=== PATIENT | male | born 1985 | race Caucasian/White ===

== ENCOUNTER → 2022-02-01 12:31 | Outpatient (BNVA) | payer OTHER, SELFPAY | PROVIDERS: PCP Nurse Practitioner Adult Health; Visit Provider Nurse Practitioner Family | DX: R06.83 Snoring (principal); R40.0 Somnolence; G25.81 Restless legs syndrome; G47.52 REM sleep behavior disorder | CPT/HCPCS: 99202 ==

== ENCOUNTER → 2022-04-29 22:32 | Outpatient (REF) | payer OTHER, SELFPAY | LOC: HO.SL 22:32 | PROVIDERS: PCP Nurse Practitioner Adult Health; Visit Provider Nurse Practitioner Family | DX: R06.83 Snoring (principal); R40.0 Somnolence; G25.81 Restless legs syndrome; G47.52 REM sleep behavior disorder | CPT/HCPCS: 95810 ==

== ENCOUNTER → 2022-07-05 13:58 | Outpatient (BNVA) | payer OTHER, SELFPAY | PROVIDERS: PCP Nurse Practitioner Adult Health; Visit Provider Nurse Practitioner Family | DX: G47.33 Obstructive sleep apnea (adult) (pediatric) (principal); R06.83 Snoring; Z99.89 Dependence on other enabling machines and devices | CPT/HCPCS: 99212 ==

== ENCOUNTER 2023-07-07 15:00 | Outpatient (AMB) | payer OTHER, SELFPAY ==
--- NOTE | 2023-07-07 15:33 | MHC.OFFVIS ---
Intake Vital Signs 07/07/23 15:50 Height 5 ft 11 in Weight 227 lb 4 oz BMI 31.7 BP 134/70 Blood Pressure Location Lt brachial Position Sitting Pulse 63 Pulse Source Pulse Oximeter Pulse Oximetry (%) 98 Oxygen Delivery Method Room Air Intake Visit Reasons: 1yr f/u observed apnea - CONF w/address Intake Note: Patient presents for a 1 year f/u. While using CPAP machine pt. finds himself gasping for air. Would like to try full face mask. Pt. falls asleep during day often. Allergies No Known Allergies Allergy (Verified 07/07/23 15:44) HPI HPI Comments History of Present Illness Details 37 y/o male patient presents for follow up of BREANNE on CPAP. The CPAP compliance and therapy response (04/01/23-06/29/23) reviewed with the patient. He is on APAP [id number]. Usage days 69 days and average usage hours 4 hours 30 min. The max pressure is 8.7 and AHI was 2.1. The PSG sleep study result was significant for loud snoring and mild degree of sleep apnea with increased severity in REM sleep. The AHI was 5/hr, REM AHI was 17/hr and oxygen catal[place] was 85%. Pt reports he uses nasal mask, but he wants to try full face mask, he feels too much pressure to his nose. 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 He plans to switch his work schedule. [facility] Surgical History History of appendectomy Hx of tonsillectomy Family History Maternal Grandmother Breast cancer Maternal Aunt Breast cancer Father Diabetes HTN (hypertension) Sister Diabetes Social History Alcohol intake: former Patient Tobacco Use Status: Current everyday Tobacco user Cigarettes Per Day: 10 Years Smoked: 21 Review of Systems Const All systems reviewed & are unremarkable except as noted in HPI and below ENT Reports Normal hearing present Neuro Reports Normal hearing present Physical Exam Vital Signs: Last Vital Signs Pulse 63 07/07/23 15:50 BP 134/70 07/07/23 15:50 Pulse Ox 98 07/07/23 15:50 Oxygen Delivery Method Room Air 07/07/23 15:50 BMI result Body Mass Index 31.7 Const General: cooperative Nutritional Appearance: obese Orientation/consciousness: patient oriented x3 HEENT Throat: Yes other (mallampati score 4) Neck Neck: Yes full ROM and Yes supple Resp Effort & Inspection: normal respiratory effort and able to speak in complete sentences Neuro General: patient oriented x3, gait normal and moves all extremities Cranial nerves: Yes Bilaterally intact EOM present, Yes Normal facial strength present, Yes Midline tongue present, Yes Symmetric palate elevation present, Yes Normal hearing present, Yes Ability to bilaterally rotate head present and Yes Ability to bilaterally elevate shoulders present Cognition (Neuro): normal cognition Gait exam (Neuro): Normal gait present Psych Appearance: grossly normal Mental Status: mental status grossly normal Speech and movement: Normal speech and movement present Affect: normal affect Attitude: cooperative Assessment & Plan Assessment & Plan (1) BREANNE on CPAP: Code(s): G47.33 - Obstructive sleep apnea (adult) (pediatric); Z99.89 - Dependence on other enabling machines and devices (2) Loud snoring: Code(s): R06.83 - Snoring Plan Continue to use APAP [id number]. Stressed compliance, uses every night and more than 4 hours. Clean mask and tubing regularly. New mask fitting prescription and [facility] information given to patient. Wt reduction advised. Coding Level of Care Code Est Pt Level 3 (55630) Diagnoses BREANNE on CPAP G47.33; Z99.89 Loud snoring R06.83
[2023-07-07 15:50] VITALS: BP 134/70; PULSE 63; O2SAT 98; BMI 31.7
== END 2023-07-07 16:05 | disposition home or self-care (01) ==
LOC: HO.HSMS 15:00
PROVIDERS: PCP Nurse Practitioner Adult Health; Visit Provider Nurse Practitioner Family
DX: G47.33 Obstructive sleep apnea (adult) (pediatric) (principal); Z99.89 Dependence on other enabling machines and devices; R06.83 Snoring
CPT/HCPCS: 99213

== ENCOUNTER → 2023-07-07 15:00 | Outpatient (BNVA) | payer OTHER, SELFPAY | PROVIDERS: PCP Nurse Practitioner Adult Health; Visit Provider Nurse Practitioner Family | DX: G47.33 Obstructive sleep apnea (adult) (pediatric) (principal); R06.83 Snoring; Z99.89 Dependence on other enabling machines and devices | CPT/HCPCS: 99212 ==

== ENCOUNTER 2024-06-11 14:59 | Outpatient (AMB) | payer OTHER, SELFPAY ==
[2024-06-11 15:04] VITALS: BP 130/80; PULSE 52; O2SAT 97; BMI 34.3
--- NOTE | 2024-06-11 15:04 | A.OFFVIS_ITS ---
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 Required: No Accompanied by: Self / Same As Patient Allergies No Known Allergies Allergy (Verified 06/11/24 15:07) Medication List - Last Reconciled 06/12/24 by LUDA Tariq acamprosate 666 mg PO TID buprenorphine ER (Sublocade) mg subcut buprenorphine-naloxone 4-1 mg (Suboxone) 5 mg sublingual DAILY clonidine HCl 0.1 mg PO BID cyclobenzaprine 10 mg PO BEDTIME gabapentin mg PO gabapentin 300 mg PO TID gabapentin 400 mg PO TID hydroxyzine HCl mg PO ibuprofen 800 mg PO DAILY lamotrigine 100 mg PO DAILY lamotrigine 50 mg PO DAILY methocarbamol 750 mg PO Q6H PRN naloxone 4 mg/actuation sprays intranasal naproxen 500 mg PO BID nicotine (polacrilex) mg PO ondansetron 4 mg PO Q8H PRN prazosin 1 mg PO BEDTIME quetiapine mg PO sertraline 50 mg PO DAILY trazodone 100 mg PO BEDTIME PRN HPI Comments Details: 38 y/o male patient presents for follow up of BREANNE on CPAP, who would also like to discuss involuntary sleepy behaviors and hypersomnia. Patient states he is generally sleeping well with the CPAP, he feels that it is helpful. He has stopped using the water in his water reservoir, as even with small amounts of water in the water chamber, he experiences significant water accumulation in his mask. He reported this to his respiratory company, and had received a 2nd [employer]an CPAP machine, but this has continued to happen. 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 He also reports a nocturnal whole body twitch which can come and go through out the night, as well as waking up with 1 arm raised and sore in fixed extension, and fighting in his sleep. 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 He he states he has a h/o one provoked seizure while withdrawing from percocet/fentanyl. Otherwise, he denies any other history of known seizure activity. When asked if he is prone to spacing out, patient states he is prone to falling asleep when inactive. For instance, pt reports if he is not busy, and is just sitting for 20 minutes, he may fall asleep. Or if he is very busy, and if he sits down, he will fall asleep. Review of previous in-lab sleep study, shows mild BREANNE and minimal periodic limb movement of sleep. He takes 1 cup of coffee per day. Otherwise he does not take any other caffeinated beverages. He does not take any alcohol, marijuana, or illicit substances. [facility] Surgical History History of appendectomy Hx of tonsillectomy Family History Maternal Grandmother Breast cancer Maternal Aunt Breast cancer Father Diabetes HTN (hypertension) Sister Diabetes Social History Alcohol intake: former Patient Tobacco Use Status: Current everyday Tobacco user Cigarettes Per Day: 10 Years Smoked: 21 Physical Exam Vital Signs: Last Vital Signs Pulse 52 06/11/24 15:04 BP 130/80 06/11/24 15:04 Pulse Ox 97 06/11/24 15:04 Oxygen Delivery Method Room Air 06/11/24 15:04 BMI result Body Mass Index 34.3 Const General: cooperative and no acute distress Orientation/consciousness: patient oriented x3 Resp Effort & Inspection: normal respiratory effort and able to speak in complete sentences Neuro General: patient oriented x3 and deep tendon reflexes 2+ bilaterally Cranial nerves: Yes CN's II-XII intact bilaterally Cognition (Neuro): normal cognition Gait exam (Neuro): Normal gait present Motor exam (neuro): 5/5 motor strength present throughout Psych Appearance: grossly normal Mental Status: mental status grossly normal Speech and movement: Normal speech and movement present Affect: normal affect Attitude: cooperative Assessment & Plan Assessment & Plan (1) BREANNE on CPAP: Code(s): G47.33 - Obstructive sleep apnea (adult) (pediatric); Z99.89 - Dependence on other enabling machines and devices Category: Medical (2) Parasomnia: Code(s): G47.50 - Parasomnia, unspecified Category: Medical (3) Hypersomnia, unspecified: Code(s): G47.10 - Hypersomnia, unspecified Category: Medical (4) History of seizure: Code(s): Z87.898 - Personal history of other specified conditions Category: Medical Plan For BREANNE: Continue APAP 5-20 cmH2O w/ EPR 2 nightly > 4 hours, as pt continues to have good clinical effect from use. Clean CPAP machine and supplies routinely. Change CPAP supplies routinely. Use distilled water in CPAP water reservoir. Pt to contact us or respiratory company with any questions or concerns. For involuntary nocturnal movements and hypersomnia, in setting previous seizure activity: Encouraged patient to try to maintain a regular bedtime and wake-up time. Some of his hypersomnia, may be in part due to current medication regimen, however in consideration of all of his sleep symptoms, further workup is indicated. Check labs for common etiologies Check baseline EEG Check brain MRI with and without contrast Will follow-up upon review of above and patient to follow-up in clinic in 6 months or sooner prn. Orders: Orders EEG electroencephalogram 06/11/24 E05.90 - Thyrotoxicosis, unspecified without thyrotoxic crisis or storm, F32.A - Depression, unspecified, F41.9 - Anxiety disorder, unspecified, G47.10 - Hypersomnia, unspecified, R25.9 - Unspecified abnormal involuntary movements, Z87.898 - Personal history of other specified conditions Rheumatoid Factor 06/11/24 E05.90 - Thyrotoxicosis, unspecified without thyrotoxic crisis or storm, F32.A - Depression, unspecified, F41.9 - Anxiety disorder, unspecified, G47.10 - Hypersomnia, unspecified, R25.9 - Unspecified abnormal involuntary movements, Z87.898 - Personal history of other specified conditions Vitamin B12 and Folate 06/11/24 E05.90 - Thyrotoxicosis, unspecified without thyrotoxic crisis or storm, F32.A - Depression, unspecified, F41.9 - Anxiety disorder, unspecified, G47.10 - Hypersomnia, unspecified, R25.9 - Unspecified abnormal involuntary movements, Z87.898 - Personal history of other specified conditions TSH reflex Free T4 06/11/24 E05.90 - Thyrotoxicosis, unspecified without thyrotoxic crisis or storm, F32.A - Depression, unspecified, F41.9 - Anxiety disorder, unspecified, G47.10 - Hypersomnia, unspecified, R25.9 - Unspecified abnormal involuntary movements, Z87.898 - Personal history of other specified conditions Complete Blood Count Auto Diff 06/11/24 E0. - Thyrotoxicosis, unspecified without thyrotoxic crisis or storm, F32.A - Depression, unspecified, F41.9 - Anxiety disorder, unspecified, G47.10 - Hypersomnia, unspecified, R25.9 - Unspecified abnormal involuntary movements, Z87.898 - Personal history of other specified conditions Comprehensive Met. Panel 06/11/24 E05.90 - Thyrotoxicosis, unspecified without thyrotoxic crisis or storm, F32.A - Depression, unspecified, F41.9 - Anxiety disorder, unspecified, G47.10 - Hypersomnia, unspecified, R25.9 - Unspecified abnormal involuntary movements, Z87.898 - Personal history of other specified conditions Vitamin B6 06/11/24 E05.90 - Thyrotoxicosis, unspecified without thyrotoxic crisis or storm, F32.A - Depression, unspecified, F41.9 - Anxiety disorder, unspecified, G47.10 - Hypersomnia, unspecified, R25.9 - Unspecified abnormal involuntary movements, Z87.898 - Personal history of other specified conditions MR head/brain wo/w con 06/11/24 E0.90 - Thyrotoxicosis, unspecified without thyrotoxic crisis or storm, F32.A - Depression, unspecified, F41.9 - Anxiety disorder, unspecified, G47.10 - Hypersomnia, unspecified, R25.9 - Unspecified abnormal involuntary movements, Z87.898 - Personal history of other specified conditions FAMILIA Reflex Titer and Pattern 06/11/24 E0. - Thyrotoxicosis, unspecified without thyrotoxic crisis or storm, F32.A - Depression, unspecified, F41.9 - Anxiety disorder, unspecified, G47.10 - Hypersomnia, unspecified, R25.9 - Unspecified abnormal involuntary movements, Z87.898 - Personal history of other specified conditions Vitamin D 25-OH (D2 and D3) 06/11/24 E05.90 - Thyrotoxicosis, unspecified without thyrotoxic crisis or storm, F32.A - Depression, unspecified, F41.9 - Anxiety disorder, unspecified, G47.10 - Hypersomnia, unspecified, R25.9 - Unspecified abnormal involuntary movements, Z87.898 - Personal history of other specified conditions HIV Ab/Ag 06/11/24 E0.90 - Thyrotoxicosis, unspecified without thyrotoxic crisis or storm, F32.A - Depression, unspecified, F41.9 - Anxiety disorder, unspecified, G47.10 - Hypersomnia, unspecified, R25.9 - Unspecified abnormal involuntary movements, Z87.898 - Personal history of other specified conditions Lyme IgG/IgM w/reflex to WB 06/11/24 E05.90 - Thyrotoxicosis, unspecified without thyrotoxic crisis or storm, F32.A - Depression, unspecified, F41.9 - Anxiety disorder, unspecified, G47.10 - Hypersomnia, unspecified, R25.9 - Unspecified abnormal involuntary movements, Z87.898 - Personal history of other specified conditions CRP High Sensitivity 06/11/24 E05.90 - Thyrotoxicosis, unspecified without thyrotoxic crisis or storm, F32.A - Depression, unspecified, F41.9 - Anxiety disorder, unspecified, G47.10 - Hypersomnia, unspecified, R25.9 - Unspecified abnormal involuntary movements, Z87.898 - Personal history of other specified conditions Erythrocyte Sedimentation Rate 06/11/24 E05.90 - Thyrotoxicosis, unspecified without thyrotoxic crisis or storm, F32.A - Depression, unspecified, F41.9 - Anxiety disorder, unspecified, G47.10 - Hypersomnia, unspecified, R25.9 - Unspecified abnormal involuntary movements, Z87.898 - Personal history of other specified conditions Ferritin 06/11/24 E05.90 - Thyrotoxicosis, unspecified without thyrotoxic crisis or storm, F32.A - Depression, unspecified, F41.9 - Anxiety disorder, unspecified, G47.10 - Hypersomnia, unspecified, R25.9 - Unspecified abnormal involuntary movements, Z87.898 - Personal history of other specified conditions Vitamin B1 06/11/24 E05.90 - Thyrotoxicosis, unspecified without thyrotoxic crisis or storm, F32.A - Depression, unspecified, F41.9 - Anxiety disorder, unspecified, G47.10 - Hypersomnia, unspecified, R25.9 - Unspecified abnormal involuntary movements, Z87.898 - Personal history of other specified conditions Magnesium 06/11/24 E05.90 - Thyrotoxicosis, unspecified without thyrotoxic angelica is or storm, F32.A - Depression, unspecified, F41.9 - Anxiety disorder, unspecified, G47.10 - Hypersomnia, unspecified, R25.9 - Unspecified abnormal involuntary movements, Z87.898 - Personal history of other specified conditions Coding Level of Care Code Est Pt Level 4 (75099) Diagnoses BREANNE on CPAP G47.33; Z99.89 Parasomnia G47.50 Hypersomnia, unspecified G47.10 History of seizure Z87.898
--- OUTSIDE RECORDS SUMMARY | 2024-06-11 15:09 | XMS_ITS | Clinical Summary ---
Author Organization [facility] ity Address [address] [place] [address] Care Team Providers Care Family Services Assistant Name Role Phone Roberto Becker MD Primary Care Provider [phone] Surgical History Surgery Date Site/Laterality Comments APPENDECTOMY PROCEDURE: HISTORICAL APPENDECTOMY TONSILLECTOMY PROCEDURE: HISTORICAL TONSILLECTOMY WISDOM TOOTH EXTRACTION PROCEDURE: HISTORICAL WISDOM TEETH EXTRACTION Family History Medical History Relation Name Comments Breast cancer Aunt maternal aunt, diagnosed in her 40's Diabetes Father Hypertension Father Other cancer Maternal Grandfather Breast cancer Maternal Grandmother in her 70's No Known Problems Mother Cataracts Paternal Grandfather No Known Problems Paternal Grandmother No Known Problems Sister 1 Diabetes Sister 2 Liver disease Sister 2 congenital juliana er issues, younger sister Relation Name Status Comments Aunt Alive Father Alive Maternal Grandfather Maternal Grandmother Mother Alive Paternal Grandfather Alive Paternal Grandmother Sister 1 Alive Sister 2 Alive Social History Tobacco Use Types Packs/Day Years Used Date Smoking Tobacco: Some Days Cigarettes 0.5 27.1 Started: 04/21/1997 Smokeless Tobacco: Never Alcohol Use Standard Drinks/Week Comments Not Currently 0 (1 standard drink = 0.6 oz pur e alcohol) Sex and Gender Information Value Date Recorded Sex Assigned at Not on file Legal Sex Male 5:06 AM EST Gender Identity Not on file Sexual Orientation Not on file Obstetrics History Last Filed Vital Signs Vital Sign Reading Time Taken Comments Blood Pressure 114/73 10/01/2023 11:29 AM EDT Pulse 65 10/01/2023 11:29 AM EDT Temperature - - Respiratory Rate - - Oxygen Saturation - - Inhaled Oxygen Concentration - - Weight 108 kg (239 lb) 10/01/2023 11:29 AM EDT Height 180.3 cm (5' 11 ) 10/01/2023 11:29 AM EDT Body Mass Index 33.33 10/01/2023 11:29 AM EDT Plan of Treatment Health Maintenance Due Date Last Done Comments Hepatitis A Vaccines (1 of 2 - Risk 2-dose series) 10/10/2006 Hepatitis B Vaccines (1 of 3 - 19+ 3-dose series) 10/10/2006 Pneumococcal Vaccine: Pediatrics (0 to 5 Years) and At-Risk Patients (6 to 64 Years) (1 of 2 - PCV) 10/10/2006 Depression Screening 03/24/2022 HIV Screening 03/24/2022 Hepatitis C Screening 03/24/2022 Social Influencers of Health Screening 03/24/2022 COVID-19 Vaccine (3 - 2023-2 5 season) 2023 09/29/2020, 09/08/2020 Influenza Vaccine (#1) 2023 Cholesterol Screening (Lipid Panel) 12/23/2028 12/24/2023 DTaP,Tdap,and Td Vaccines (2 - Td or Tdap) 03/06/2031 03/06/2021 HIB Vaccines Aged Out No longer eligi ble based on patient's age to complete this topic HPV Vaccines Aged Out No longer eligi ble based on patient's age to complete this topic IPV Vaccines Aged Out No longer eligi ble based on patient's age to complete this topic MMR Vaccines Aged Out No longer eligi ble based on patient's age to complete this topic Meningococcal ACWY Vaccine Aged Out N o longer eligible based on patient's age to complete this topic Meningococcal B Vacine Aged Out No lo nger eligible based on patient's age to complete this topic RSV Immunization Patients Under 20 months Aged Out No longer eligible b ased on patient's age to complete this topic Varicella Vaccines Aged Out No longer eligible based on patient's age to complete this topic Care Teams Family Services Assistant Relationship Specialty Start Date End Date Roberto Becker MD [address] [place] [address] PCP - General 01/05/21
== END 2024-06-11 15:49 | disposition home or self-care (01) ==
PROVIDERS: PCP Nurse Practitioner Adult Health; Visit Provider Nurse Practitioner Family
DX: G47.33 Obstructive sleep apnea (adult) (pediatric) (principal); Z99.89 Dependence on other enabling machines and devices; G47.50 Parasomnia, unspecified; G47.10 Hypersomnia, unspecified; Z87.898 Personal history of other specified conditions
CPT/HCPCS: 99214

== ENCOUNTER → 2024-06-11 14:59 | Outpatient (BNVA) | payer OTHER, SELFPAY | PROVIDERS: PCP Nurse Practitioner Adult Health; Visit Provider Nurse Practitioner Family | DX: G47.33 Obstructive sleep apnea (adult) (pediatric) (principal); G47.50 Parasomnia, unspecified; G47.10 Hypersomnia, unspecified; Z99.89 Dependence on other enabling machines and devices; Z87.898 Personal history of other specified conditions | CPT/HCPCS: 99212 ==

== ENCOUNTER → 2024-07-17 13:36 | Outpatient (BNV) | payer OTHER, SELFPAY | PROVIDERS: PCP Family Medicine; Visit Provider Radiology Diagnostic Radiology | DX: G43.B0 Ophthalmoplegic migraine, not intractable (principal) | CPT/HCPCS: 70553 ==

== ENCOUNTER 2024-07-17 13:37 | Outpatient (REF) | payer OTHER, SELFPAY ==
--- NOTE | ~2024-07-17 | MR_ITS ---
EXAMINATION: MR BRAIN WITHOUT AND WITH CONTRAST CLINICAL INFORMATION: Headache. Scintillating scotoma. COMPARISON: None available. TECHNIQUE: Multiplanar, multisequence MRI of the brain was obtained before and after the intravenous administration of 10 mL gadolinium based without reported immediate complications. FINDINGS: No restricted diffusion. No acute intracranial hemorrhage, mass effect, midline shift, hydrocephalus or herniation. Rosario-white matter differentiation is normal. Sellar/suprasellar region demonstrated no signal abnormality or enhancing lesion. Craniocervical junction is intact and normal. The hippocampi demonstrated normal signal and normal volume. Flow-void signal within the main cerebral vessels is normal. No abnormal enhancement within the intra-axial or the extra-axial compartments.. MR/MR head/brain wo/w con IMPRESSION: No acute or structural brain abnormality. No abnormal enhancement. Electronically signed by: Delon Ramos MD 07/19/2024 12:06 PM EDT
[2024-07-17] MEDS: gadobutroL 10 ML VIAL IVPUSH (14:20)
== END 2024-07-17 13:38 | disposition home or self-care (01) ==
LOC: HO.MRI 13:37
PROVIDERS: PCP Family Medicine; Visit Provider Nurse Practitioner Family
DX: G47.10 Hypersomnia, unspecified (principal); R25.9 Unspecified abnormal involuntary movements; E05.90 Thyrotoxicosis, unspecified without thyrotoxic crisis or storm; F41.9 Anxiety disorder, unspecified; F32.A Depression, unspecified; Z87.898 Personal history of other specified conditions
CPT/HCPCS: 70553; A9585

== ENCOUNTER 2024-08-19 10:01 | Outpatient (REF) | payer OTHER, SELFPAY ==
--- NOTE | 2024-08-19 10:03 | EEG_ITS ---
FINDINGS: This is a 16 channel EEG with an EKG lead. The patient is reported awake during the tracing. Background EEG rhythm is low amplitude fast with no obvious asymmetry or paroxysmal tendency. Photic stimulation does not produce any significant abnormality. Hyperventilation is not performed. Cardiac lead revealed sinus bradycardia. No sharp wave spikes or paroxysmal tendency noted. IMPRESSION: No significant abnormality noted on this EEG. MD SEAN Contreras/KWAKU / [id number]
--- OUTSIDE RECORDS SUMMARY | 2024-08-19 11:17 | XMS_ITS | Clinical Summary ---
Author Organization [facility] ity Address [address] [place] [address] Care Team Providers Care Auto Body Technician Name Role Phone Roberto Becker MD Primary Care Provider Surgical History Surgery Date Site/Laterality Comments APPENDECTOMY [...] Date Smoking Tobacco: Some Days Cigarettes 0.5 27.3 Started: 04/21/1997 Smokeless Tobacco: Never Alcohol Use [...] 5 season) 2023 09/29/2020, 09/08/2020 Influenza Vaccine (Season Ended) 2024 Cholesterol Screening (Lipid Panel) 12/23/2028 12/24/2023 DTaP,Tdap,and [...] age to complete this topic Meningococcal B Vaccine Aged Out No l onger eligible based on patient's age to complete this topic RSV Immunization Patients Under 20 months Aged Out No longer eligible b ased on patient's age to complete this topic Varicella Vaccines Aged Out No longer eligible based on patient's age to complete this topic Care Teams Auto Body Technician Relationship Specialty Start Date End Date Roberto Becker MD [address] [place] [address] PCP - General 01/05/21
== END 2024-08-19 10:02 | disposition home or self-care (01) ==
LOC: HO.NEURO 10:01
PROVIDERS: PCP Family Medicine; Visit Provider Nurse Practitioner Family
DX: G47.10 Hypersomnia, unspecified (principal); R25.9 Unspecified abnormal involuntary movements; E05.90 Thyrotoxicosis, unspecified without thyrotoxic crisis or storm; F41.9 Anxiety disorder, unspecified; F32.A Depression, unspecified; Z87.898 Personal history of other specified conditions
CPT/HCPCS: 95816